=== PATIENT | female | born 2000 | race Caucasian/White ===

== ENCOUNTER 2024-09-28 16:53 | Emergency (ER) | payer SELFPAY ==
[~2024-09-28] VITALS: Ht 152.4 cm; Wt 63.0 kg
[2024-09-28 17:20] VITALS: O2SAT 99
[2024-09-28 19:47] LABS: BASOPHILS % 0.6 % (0.0-2.0); DIFFERENTIAL COMMENT 0; EOSINOPHILS % 1.5 % (0.0-5.0); HEMATOCRIT. 41.6 % (36.0-48.0); LYMPHOCYTES % 23.9 % (20.0-50.0); MEAN CORPUSCULAR HEMOGLOBIN 26.6 pg (28.0-32.0); MEAN CORPUSCULAR HGB CONC 33.6 g/dL (31.0-37.0); MEAN CORPUSCULAR VOLUME 79.1 fL (81.0-99.0); MEAN PLATELET VOLUME 7.1 fl (7.4-10.4); MONOCYTES % 7.8 % (2.0-8.0); NEUTROPHILS % 66.2 % (40.0-76.0); PLATELET 438 x1000/uL (130-400); RED BLOOD CELL COUNT 5.26 mill/uL (4.2-5.4); RED CELL DISTRIBUTION WIDTH 13.4 % (11.6-14.6); WHITE BLOOD COUNT 8.2 x1000/uL (4.5-11.0)
[2024-09-28 19:51] LABS: CHLORIDE 104 mEq/L (98-107); POTASSIUM 3.9 mEq/L (3.5-5.1); SODIUM 140 mEq/L (136-145)
[2024-09-28 19:53] LABS: CALCIUM 9.6 mg/dL (8.7-10.4); CARBON DIOXIDE 28 mEq/L (21-32)
[2024-09-28 19:58] LABS: CREATININE 0.8 mg/dL (0.6-1.0); GLUCOSE 101 mg/dL (70-105); UREA NITROGEN BLOOD 7 mg/dL (9-23)
[2024-09-28] MEDS: BUPRENORPHINE 8MG SL TABLET SL ONE (20:30)
[2024-09-28] MEDS: ACETAMINOPHEN 325MG TABLET PO ONE (20:30)
[2024-09-28 20:58] LABS: CLARITY URINE CLEAR (CLEAR); COLOR URINE YELLOW (YELLOW); GLUCOSE URINE NEGATIVE (NEGATIVE); KETONES URINE NEGATIVE (NEGATIVE); LEUKOCYTE ESTERASE URINE NEGATIVE (NEGATIVE); NITRITE URINE NEGATIVE (NEGATIVE); OCCULT BLOOD URINE NEGATIVE (NEGATIVE); PH URINE 5.5 (4.5-8.0); PROTEIN URINE NEGATIVE (NEGATIVE); SPECIFIC GRAVITY URINE 1.013 (1.005-1.030); UROBILINOGEN URINE 0.2 E.U./dL (0.2-1.0)
[2024-09-28] MEDS: MECLIZINE 25MG TABLET PO ONE (21:00)
[2024-09-28] MEDS: ONDANSETRON 4MG ODT PO ONE (21:00)
[2024-09-28 21:13] LABS: HCG SCREEN NEGATIVE
[2024-09-28] MEDS: ACETAMINOPHEN 325MG TABLET PO NR (23:15)
[2024-09-28] MEDS: MECLIZINE 25MG TABLET PO NR (23:15)
[2024-09-28] MEDS: ONDANSETRON 4MG ODT PO NR (23:15)
[2024-09-29 01:14] VITALS: BP 129/89; PULSE 97; RESP 20; TEMP 36.78072; O2SAT 99
== END 2024-09-29 01:32 | disposition home or self-care (01) ==
LOC: ER 16:53
DX: R42 Dizziness and giddiness (principal); F14.90 Cocaine use, unspecified, uncomplicated
CPT/HCPCS: 80048; 81003; 84703; 85025; 36415; 71045; 70450; 93005; 99285; J8597; Q0162; Z7610 ×2